=== PATIENT | male | born 1940 | race Caucasian/White ===

== ENCOUNTER 2022-04-24 04:43 | Inpatient (IN) | payer MEDICARE ==
[2022-04-24] MEDS ORDERED: methylPREDNISolone Sod Succ/PF 125 MG/2 ML VIAL ONE (05:00)
[2022-04-24 05:18] LABS: #Basophils 0.1 10x3/uL (0.0-0.2); #Eosinphils 0.1 10x3/uL (0.0-0.5); #Monocytes 1.3 10x3/uL (0.0-1.1); %Basophils 0.8 % (0.0-2.0); %Eosinophils 0.5 % (0.0-6.0); %Lymphocytes 6.6 % (18.0-47.0); %Monocytes 9.1 % (0.0-10.0); %Neutrophils 82.7 % (40.0-75.0); Hemoglobin 12.3 g/dL (13.5-17.5); Mean Corpuscular HGB CONC 32.9 g/dL (32.0-36.0); Mean Corpuscular Volume 94.2 fl (81.2-95.1); Mean Platelet Volume 10.5 fl (7.4-10.4); Platelet Count 309 10x3/uL (150-450); RBC Distribution Width 16.5 % (11.5-14.5); Red Blood Cell (RBC) Count 3.97 10x6/uL (4.32-5.72); White Blood Cell (WBC) Count 14.6 10x3/uL (3.5-10.5)
[2022-04-24 05:37] LABS: ALT (SGPT) 39 U/L (8-55); AST (SGOT) 56 U/L (5-34); Albumin 3.8 g/dL (3.4-4.8); Alkaline Phosphatase 94 U/L (40-110); Anion Gap 17 mmol/L (10-20); BUN (Urea Nitrogen) 13 mg/dL (8.4-25.7); Calc. Creatinine Clearance 0 mL/min (70-130); Carbon Dioxide 22 mmol/L (23-31); Chloride 102 mmol/L (98-107); Globulin 2.9 g/dL (2.4-3.5); Glucose 133 mg/dL (83-110); Potassium 4.5 mmol/L (3.5-5.1); Protein, Total 6.7 g/dL (5.8-8.1); Sodium 136 mmol/L (136-145)
[2022-04-24 06:00] LABS: CKMB 3.3 ng/mL (0-6.6)
[2022-04-24 06:01] LABS: SARS-CoV-2 NAA Rapid Test Not Detected (NotDetected)
[2022-04-24 06:28] LABS: Actual Bicarbonate (HCO3v) 22 mEq/L (22-28); Base Excess -0.6 mEq/L (-2.0 to +3.0); Calcium, Ionized (venous) 0.99 mmol/L (1.16-1.32); Chloride (VBG) 104 mmol/L (98-106); Potassium (VBG) 4.54 mmol/L (3.70-5.30); Puncture Site Other Site; Sodium 131.1 mmol/L (133-146); pH (venous) 7.48 (7.32-7.43)
[2022-04-24] MEDS ORDERED: Nitroglycerin 2% Ointment 1 INCH/1 GM Packet ONE (06:43)
[2022-04-24] MEDS ORDERED: Furosemide 40 MG/4 ML VIAL ONE (06:43)
[2022-04-24] MEDS ORDERED: cefTRIAXone\\ROCEPHIN 1 GM VIAL ONE (06:44)
[2022-04-24] MEDS ORDERED: Enalaprilat Dihydrate 1.25 MG/ML VIAL SLOW IVP SCH (07:00)
[2022-04-24] MEDS ORDERED: Albuterol Sulfate 2.5 mg/3 ml Neb NEB PRN (07:58)
[2022-04-24] MEDS ORDERED: Acetaminophen 325 MG TAB PO PRN (07:59)
[2022-04-24] MEDS ORDERED: Senokot S 8.6-50 MG TAB PO PRN (07:59)
[2022-04-24] MEDS ORDERED: Ondansetron ODT 4 MG TAB PO PRN (07:59)
[2022-04-24] MEDS ORDERED: Ondansetron PF 4 MG/2 ML Vial IVP PRN (07:59)
[2022-04-24 09:10] LABS: Troponin I 0.082 ng/mL (< 0.028)
[2022-04-24] MEDS: Enoxaparin Sodium 40 MG/0.4 ML SYRINGE SC SCH (10:02)
[2022-04-24] MEDS: Famotidine 20 MG TAB PO SCH ×2 (10:02→19:50)
[2022-04-24] MEDS ORDERED: Nicotine 14 MG PATCH TD PRN (10:05)
[2022-04-24] MEDS: Azithromycin 500 MG in Sodium Chloride 0.9% 250 ML 250 ML IVPB SCH (10:15)
[2022-04-24 11:42] LABS: Troponin I 0.074 ng/mL (< 0.028)
[2022-04-24 12:25] LABS: Bilirubin Neg (Negative); Blood, Urine Negative (Negative); Clarity Clear (Clear); Glucose, Urine (Dipstick) Normal (Negative); Ketone, Urine Negative (Negative); Leukocyte Negative (Negative); Nitrite Negative (Negative); Protein, Urine (Dipstick) Negative (Neg-Trace); Specific Gravity, Urine 1.005 (1.002-1.036); Urobilinogen Normal mg/dL (Less than 2); pH, Urine 6.5 (5.0-9.0)
[2022-04-24 12:35] LABS: Urine Culture Reflex No No
[2022-04-24 12:37] LABS: Bacteria/HPF None Seen HPF (None Seen); RBC/HPF None Seen HPF (0-3); Squamous Epithelial 0-3 HPF (0-3); WBC/HPF None Seen HPF (0-3)
[2022-04-24 12:39] LABS: Legionella Urinary Ag Negative (Negative); Strep pneumo Urine Ag NEGATIVE (NEGATIVE)
[2022-04-24] MEDS ORDERED: Furosemide 40 MG/4 ML VIAL SLOW IVP SCH (14:00)
[2022-04-24] MEDS: hydrALAZINE 25 MG TAB PO SCH (19:50)
[2022-04-24] MEDS: Calcium Carbonate 600 MG + Vit D TAB PO SCH (19:50)
[2022-04-24] MEDS: Multivit, Therapeutic 1 TAB PO SCH (19:51)
[2022-04-24] MEDS: Lorazepam 1 MG TAB PO SCH (19:51)
[2022-04-24] MEDS: Losartan Potassium 50 MG TAB PO SCH (19:51)
[2022-04-24] MEDS: Zolpidem Tartrate 5 MG TAB PO SCH (19:51)
[2022-04-25 05:22] LABS: Anion Gap 13 mmol/L (10-20); BUN (Urea Nitrogen) 16 mg/dL (8.4-25.7); Calc. Creatinine Clearance 48 mL/min (70-130); Calcium 8.4 mg/dL (7.8-10.44); Carbon Dioxide 27 mmol/L (23-31); Chloride 102 mmol/L (98-107); Glucose 108 mg/dL (83-110); Potassium 3.9 mmol/L (3.5-5.1); Sodium 138 mmol/L (136-145)
[2022-04-25 05:28] LABS: #Basophils 0.1 10x3/uL (0.0-0.2); #Monocytes 1.4 10x3/uL (0.0-1.1); #Neutrophils 11.7 10x3/uL (1.5-8.4); %Basophils 0.4 % (0.0-2.0); %Eosinophils 0.1 % (0.0-6.0); %Lymphocytes 6.8 % (18.0-47.0); %Monocytes 9.6 % (0.0-10.0); %Neutrophils 82.8 % (40.0-75.0); Hemoglobin 10.9 g/dL (13.5-17.5); Mean Corpuscular HGB CONC 33.5 g/dL (32.0-36.0); Mean Corpuscular Hemoglobin 30.9 pg (27.0-33.0); Mean Corpuscular Volume 92.1 fl (81.2-95.1); Mean Platelet Volume 10.6 fl (7.4-10.4); Platelet Count 259 10x3/uL (150-450); RBC Distribution Width 16.1 % (11.5-14.5); Red Blood Cell (RBC) Count 3.53 10x6/uL (4.32-5.72); White Blood Cell (WBC) Count 14.1 10x3/uL (3.5-10.5)
[2022-04-25] MEDS: cefTRIAXone\\ROCEPHIN 1 GM in Sodium Chloride 0.9% 100 ML IVPB SCH (06:05)
[2022-04-25] MEDS: Losartan Potassium 50 MG TAB PO SCH (08:13)
[2022-04-25] MEDS: Famotidine 20 MG TAB PO SCH (08:14)
[2022-04-25] MEDS: Enoxaparin Sodium 40 MG/0.4 ML SYRINGE SC SCH (08:14)
[2022-04-25] MEDS: Potassium Chloride 10 MEQ TAB PO SCH (08:14)
[2022-04-25] MEDS: Atorvastatin Calcium 10 MG TAB PO SCH (08:14)
[2022-04-25] MEDS: hydrALAZINE 25 MG TAB PO SCH (08:19)
[2022-04-25] MEDS: Azithromycin 500 MG in Sodium Chloride 0.9% 250 ML 250 ML IVPB SCH (10:07)
[2022-04-25] MEDS: Furosemide 40 MG/4 ML VIAL SLOW IVP SCH (14:43)
[2022-04-25] MEDS ORDERED: hydrALAZINE 20 MG/ML VIAL SLOW IVP PRN (17:30)
[2022-04-25] MEDS ORDERED: Carvedilol 12.5 MG TAB PO SCH (18:00)
[2022-04-25] MEDS ORDERED: Aspirin Chewable 81 MG TAB PO SCH (20:00)
[2022-04-25] MEDS: Calcium Carbonate 600 MG + Vit D TAB PO SCH (20:26)
[2022-04-25] MEDS: Multivit, Therapeutic 1 TAB PO SCH (20:26)
[2022-04-25] MEDS: Lorazepam 1 MG TAB PO SCH (20:27)
[2022-04-25] MEDS: Zolpidem Tartrate 5 MG TAB PO SCH (20:27)
[2022-04-25] MEDS ORDERED: Losartan Potassium 50 MG TAB PO SCH (21:00)
[2022-04-26 04:15] LABS: #Basophils 0.1 10x3/uL (0.0-0.2); #Eosinphils 0.1 10x3/uL (0.0-0.5); #Neutrophils 6.9 10x3/uL (1.5-8.4); %Basophils 0.9 % (0.0-2.0); %Eosinophils 1.3 % (0.0-6.0); %Lymphocytes 11.5 % (18.0-47.0); %Monocytes 10.5 % (0.0-10.0); %Neutrophils 75.5 % (40.0-75.0); Hemoglobin 11.4 g/dL (13.5-17.5); Mean Corpuscular HGB CONC 33.6 g/dL (32.0-36.0); Mean Corpuscular Hemoglobin 31.4 pg (27.0-33.0); Mean Corpuscular Volume 93.4 fl (81.2-95.1); Mean Platelet Volume 10.7 fl (7.4-10.4); Platelet Count 280 10x3/uL (150-450); RBC Distribution Width 16.4 % (11.5-14.5); Red Blood Cell (RBC) Count 3.63 10x6/uL (4.32-5.72); White Blood Cell (WBC) Count 9.1 10x3/uL (3.5-10.5)
[2022-04-26 04:30] LABS: Anion Gap 14 mmol/L (10-20); BUN (Urea Nitrogen) 13 mg/dL (8.4-25.7); Calc. Creatinine Clearance 53 mL/min (70-130); Calcium 8.6 mg/dL (7.8-10.44); Carbon Dioxide 28 mmol/L (23-31); Chloride 102 mmol/L (98-107); Glucose 98 mg/dL (83-110); Potassium 3.8 mmol/L (3.5-5.1); Sodium 140 mmol/L (136-145)
[2022-04-26] MEDS: Furosemide 40 MG/4 ML VIAL SLOW IVP SCH (06:31)
[2022-04-26 06:36] VITALS: BMI 21.9
[2022-04-26] MEDS ORDERED: Carvedilol 12.5 MG TAB PO SCH (08:00)
[2022-04-26] MEDS: Potassium Chloride 10 MEQ TAB PO SCH (08:01)
[2022-04-26] MEDS: cefTRIAXone\\ROCEPHIN 1 GM in Sodium Chloride 0.9% 100 ML IVPB SCH (08:01)
[2022-04-26] MEDS: Atorvastatin Calcium 10 MG TAB PO SCH (08:01)
[2022-04-26] MEDS: Enoxaparin Sodium 40 MG/0.4 ML SYRINGE SC SCH (08:02)
[2022-04-26 08:23] VITALS: BP 155/75; TEMP 97.5
[2022-04-26] MEDS ORDERED: Famotidine 20 MG TAB PO SCH ×2 (09:00→21:00)
[2022-04-26] MEDS ORDERED: Aspirin Chewable 81 MG TAB PO SCH (09:00)
[2022-04-26] MEDS ORDERED: Valsartan 80 MG TAB PO SCH (09:00)
== END 2022-04-26 10:35 | disposition home or self-care (01) | DRG 193 ==
LOC: SUATTDRO 04:43 → CSHERS 04:43 → CSHICU 09:56
PROVIDERS: ADMIT Internal Medicine; ATTEND Hospitalist
DX: J18.9 Pneumonia, unspecified organism (principal); J96.01 Acute respiratory failure with hypoxia; I21.A1 Myocardial infarction type 2; I50.43 Acute on chronic combined systolic (congestive) and diastolic (congestive) heart failure; Z20.822 Contact with and (suspected) exposure to COVID-19; I11.0 Hypertensive heart disease with heart failure; I73.9 Peripheral vascular disease, unspecified; I71.4 Abdominal aortic aneurysm, without rupture; C61 Malignant neoplasm of prostate; E78.5 Hyperlipidemia, unspecified; I16.0 Hypertensive urgency; I48.0 Paroxysmal atrial fibrillation; D64.9 Anemia, unspecified; F17.210 Nicotine dependence, cigarettes, uncomplicated; Z88.6 Allergy status to analgesic agent; Z79.899 Other long term (current) drug therapy; Z71.6 Tobacco abuse counseling
CPT/HCPCS: 36415; 71045; 80048; 80053; 81001; 82553; 82805; 83605; 83735; 83880; 84484; 85025; 87040; 87449; 87899; 93005; 93306; 94760; 96374; 96375; J0456; J0696; J1650; J1940; J2930; J3490; J7050; J7620

== ENCOUNTER 2022-05-04 10:23 | Inpatient (IN) | payer MEDICARE ==
[2022-05-04 11:03] LABS: #Basophils 0.1 10x3/uL (0.0-0.2); #Eosinphils 0.1 10x3/uL (0.0-0.5); #Monocytes 0.9 10x3/uL (0.0-1.1); #Neutrophils 8.9 10x3/uL (1.5-8.4); %Basophils 0.5 % (0.0-2.0); %Eosinophils 0.6 % (0.0-6.0); %Lymphocytes 6.8 % (18.0-47.0); %Monocytes 8.1 % (0.0-10.0); %Neutrophils 83.6 % (40.0-75.0); Hemoglobin 12.8 g/dL (13.5-17.5); Mean Corpuscular HGB CONC 34.8 g/dL (32.0-36.0); Mean Corpuscular Hemoglobin 30.9 pg (27.0-33.0); Mean Corpuscular Volume 88.9 fl (81.2-95.1); Mean Platelet Volume 9.3 fl (7.4-10.4); Platelet Count 329 10x3/uL (150-450); RBC Distribution Width 15.4 % (11.5-14.5); Red Blood Cell (RBC) Count 4.14 10x6/uL (4.32-5.72); White Blood Cell (WBC) Count 10.6 10x3/uL (3.5-10.5)
[2022-05-04 11:13] LABS: ALT (SGPT) 20 U/L (8-55); AST (SGOT) 23 U/L (5-34); Albumin 3.5 g/dL (3.4-4.8); Alkaline Phosphatase 74 U/L (40-110); Anion Gap 14 mmol/L (10-20); BUN (Urea Nitrogen) 15 mg/dL (8.4-25.7); Bilirubin, Total 0.3 mg/dL (0.2-1.2); Calc. Creatinine Clearance 0 mL/min (70-130); Carbon Dioxide 25 mmol/L (23-31); Chloride 92 mmol/L (98-107); Globulin 2.2 g/dL (2.4-3.5); Glucose 146 mg/dL (83-110); Protein, Total 5.7 g/dL (5.8-8.1); Sodium 127 mmol/L (136-145)
[2022-05-04 11:33] LABS: CKMB 3.6 ng/mL (0-6.6)
[2022-05-04] MEDS ORDERED: Acetaminophen 325 MG TAB PO PRN (14:04)
[2022-05-04] MEDS ORDERED: Ondansetron PF 4 MG/2 ML Vial IVP PRN (14:04)
[2022-05-04] MEDS ORDERED: Ondansetron ODT 4 MG TAB PO PRN (14:04)
[2022-05-04] MEDS ORDERED: HYDROcodone/Acetaminophen 5/325 mg Tablet PO PRN (14:04)
[2022-05-04 15:41] LABS: Magnesium 1.6 mg/dL (1.6-2.6)
[2022-05-04 17:27] LABS: Anion Gap 13 mmol/L (10-20); BUN (Urea Nitrogen) 14 mg/dL (8.4-25.7); Calc. Creatinine Clearance 0 mL/min (70-130); Calcium 8.2 mg/dL (7.8-10.44); Carbon Dioxide 23 mmol/L (23-31); Chloride 96 mmol/L (98-107); Glucose 192 mg/dL (83-110); Potassium 3.4 mmol/L (3.5-5.1); Sodium 129 mmol/L (136-145)
[2022-05-04] MEDS: Carvedilol 12.5 MG TAB PO SCH (17:30)
[2022-05-04 17:32] LABS: Troponin I 0.035 ng/mL (< 0.028)
[2022-05-04] MEDS ORDERED: Enoxaparin Sodium 60 MG/0.6 ML SYRINGE SC SCH (20:00)
[2022-05-04] MEDS ORDERED: Potassium Chloride 20 MEQ TAB PO SCH (20:00)
[2022-05-04] MEDS: hydrALAZINE 25 MG TAB PO SCH (20:49)
[2022-05-05 03:35] VITALS: BMI 23.4
[2022-05-05 04:12] LABS: #Basophils 0.1 10x3/uL (0.0-0.2); #Eosinphils 0.2 10x3/uL (0.0-0.5); #Neutrophils 6.4 10x3/uL (1.5-8.4); %Basophils 0.7 % (0.0-2.0); %Eosinophils 1.7 % (0.0-6.0); %Lymphocytes 14.1 % (18.0-47.0); %Monocytes 11.5 % (0.0-10.0); %Neutrophils 71.8 % (40.0-75.0); Mean Corpuscular HGB CONC 33.7 g/dL (32.0-36.0); Mean Corpuscular Hemoglobin 30.5 pg (27.0-33.0); Mean Corpuscular Volume 90.4 fl (81.2-95.1); Mean Platelet Volume 9.5 fl (7.4-10.4); Platelet Count 317 10x3/uL (150-450); RBC Distribution Width 15.3 % (11.5-14.5); Red Blood Cell (RBC) Count 3.94 10x6/uL (4.32-5.72); White Blood Cell (WBC) Count 8.9 10x3/uL (3.5-10.5)
[2022-05-05 04:24] LABS: ALT (SGPT) 13 U/L (8-55); AST (SGOT) 18 U/L (5-34); Albumin 2.8 g/dL (3.4-4.8); Alkaline Phosphatase 65 U/L (40-110); Anion Gap 14 mmol/L (10-20); BUN (Urea Nitrogen) 12 mg/dL (8.4-25.7); Bilirubin, Total 0.2 mg/dL (0.2-1.2); Calc. Creatinine Clearance 64 mL/min (70-130); Calcium 8.1 mg/dL (7.8-10.44); Carbon Dioxide 23 mmol/L (23-31); Chloride 97 mmol/L (98-107); Globulin 2.2 g/dL (2.4-3.5); Glucose 110 mg/dL (83-110); Magnesium 1.6 mg/dL (1.6-2.6); Potassium 3.7 mmol/L (3.5-5.1); Sodium 130 mmol/L (136-145)
[2022-05-05] MEDS ORDERED: Valsartan 80 MG TAB PO SCH ×2 (09:00→13:15)
[2022-05-05] MEDS ORDERED: Hydrochlorothiazide 25 MG TAB PO SCH (09:00)
[2022-05-05] MEDS ORDERED: Potassium Chloride 10 MEQ TAB PO SCH (09:00)
[2022-05-05] MEDS ORDERED: Enoxaparin Sodium 60 MG/0.6 ML SYRINGE SC SCH (09:00)
[2022-05-05] MEDS ORDERED: Enoxaparin Sodium 30 MG/0.3 ML SYRINGE SC SCH (09:00)
[2022-05-05] MEDS: Carvedilol 12.5 MG TAB PO SCH (09:12)
[2022-05-05] MEDS ORDERED: Enoxaparin Sodium 60 MG/0.6 ML SYRINGE ONE (09:12)
[2022-05-05] MEDS: hydrALAZINE 25 MG TAB PO SCH (09:12)
[2022-05-05 11:58] VITALS: TEMP 99.2
[2022-05-05 14:25] VITALS: BP 130/70
[2022-05-05] MEDS ORDERED: Dronedarone HCl 400 MG TAB PO SCH (17:00)
[2022-05-05] MEDS ORDERED: Apixaban 5 MG TAB PO SCH (21:00)
[2022-05-06] MEDS ORDERED: Furosemide 40 MG TAB PO SCH (07:30)
[2022-05-06] MEDS ORDERED: Potassium Chloride 10 MEQ TAB PO SCH (08:00)
[2022-05-06] MEDS ORDERED: Aspirin 81 mg Enteric Coated Tablet PO SCH (09:00)
[2022-05-06] MEDS ORDERED: Valsartan 80 MG TAB PO SCH (09:00)
[2022-05-06] MEDS ORDERED: Furosemide 20 MG TAB PO SCH (09:00)
== END 2022-05-05 17:05 | disposition home or self-care (01) | DRG 308 ==
LOC: CSHERS 10:23 → CSHTELE 13:50
PROVIDERS: ADMIT Family Medicine; ATTEND Family Medicine
DX: I48.0 Paroxysmal atrial fibrillation (principal); I50.43 Acute on chronic combined systolic (congestive) and diastolic (congestive) heart failure; E87.1 Hypo-osmolality and hyponatremia; I11.0 Hypertensive heart disease with heart failure; E78.5 Hyperlipidemia, unspecified; F10.10 Alcohol abuse, uncomplicated; I71.4 Abdominal aortic aneurysm, without rupture; I73.9 Peripheral vascular disease, unspecified; F17.210 Nicotine dependence, cigarettes, uncomplicated; D64.9 Anemia, unspecified; I95.9 Hypotension, unspecified; I25.10 Atherosclerotic heart disease of native coronary artery without angina pectoris; I49.5 Sick sinus syndrome; E87.8 Other disorders of electrolyte and fluid balance, not elsewhere classified; I42.9 Cardiomyopathy, unspecified; J44.9 Chronic obstructive pulmonary disease, unspecified; I34.0 Nonrheumatic mitral (valve) insufficiency; R26.9 Unspecified abnormalities of gait and mobility; E86.9 Volume depletion, unspecified; Z20.822 Contact with and (suspected) exposure to COVID-19; Z85.46 Personal history of malignant neoplasm of prostate; Z98.890 Other specified postprocedural states; Z79.01 Long term (current) use of anticoagulants; Z71.6 Tobacco abuse counseling; Z79.82 Long term (current) use of aspirin; Z79.899 Other long term (current) drug therapy; Z88.8 Allergy status to other drugs, medicaments and biological substances; Z92.3 Personal history of irradiation
CPT/HCPCS: 36415; 71045; 80053; 82553; 83735; 83880; 83935; 84300; 84443; 84484; 85025; 93005; 93010; 96360; J1650; U0003; U0005

== ENCOUNTER 2022-05-30 15:23 | Inpatient (IN) | payer MEDICARE ==
[2022-05-30 16:35] LABS: #Basophils 0.1 10x3/uL (0.0-0.2); #Eosinphils 0.1 10x3/uL (0.0-0.5); #Monocytes 0.8 10x3/uL (0.0-1.1); #Neutrophils 5.3 10x3/uL (1.5-8.4); %Basophils 0.8 % (0.0-2.0); %Eosinophils 1.5 % (0.0-6.0); %Monocytes 11.1 % (0.0-10.0); %Neutrophils 71.3 % (40.0-75.0); Hemoglobin 6.1 g/dL (13.5-17.5); Mean Corpuscular HGB CONC 31.9 g/dL (32.0-36.0); Mean Corpuscular Volume 94.1 fl (81.2-95.1); Platelet Count 355 10x3/uL (150-450); RBC Distribution Width 15.8 % (11.5-14.5); Red Blood Cell (RBC) Count 2.03 10x6/uL (4.32-5.72); White Blood Cell (WBC) Count 7.4 10x3/uL (3.5-10.5)
[2022-05-30 16:44] LABS: ALT (SGPT) 14 U/L (8-55); AST (SGOT) 18 U/L (5-34); Albumin 3.1 g/dL (3.4-4.8); Alkaline Phosphatase 68 U/L (40-110); Anion Gap 11 mmol/L (10-20); BUN (Urea Nitrogen) 14 mg/dL (8.4-25.7); Bilirubin, Total 0.3 mg/dL (0.2-1.2); Calc. Creatinine Clearance 0 mL/min (70-130); Calcium 8.6 mg/dL (7.8-10.44); Carbon Dioxide 26 mmol/L (23-31); Chloride 104 mmol/L (98-107); Estimated GFR 69; Globulin 2.1 g/dL (2.4-3.5); Glucose 154 mg/dL (83-110); Potassium 4.5 mmol/L (3.5-5.1); Protein, Total 5.2 g/dL (5.8-8.1); Sodium 136 mmol/L (136-145)
[2022-05-30] MEDS ORDERED: Pantoprazole 40 MG VIAL ONE (16:59)
[2022-05-30 17:34] LABS: INR-International Normal Ratio 1.1; PTT 29.6 sec (22.0-33.0); Prothrombin Time 12.1 sec (9.5-12.1)
[2022-05-30 17:35] LABS: Iron 14 ug/dL (65-175); Iron Binding Capacity, Total 291 mcg/dL (261-462)
[2022-05-30] MEDS ORDERED: diphenhydrAMINE 50 MG/ML VIAL ONE (19:42)
[2022-05-30] MEDS ORDERED: methylPREDNISolone Sod Succ/PF 125 MG/2 ML VIAL ONE (19:45)
[2022-05-30] MEDS ORDERED: Nitroglycerin 2% Ointment 1 INCH/1 GM Packet ONE (19:56)
[2022-05-30] MEDS ORDERED: Furosemide 40 MG/4 ML VIAL ONE (20:00)
[2022-05-30] MEDS ORDERED: Lorazepam 2 MG/ML VIAL ONE (20:00)
[2022-05-30 20:12] LABS: #Basophils 0.1 10x3/uL (0.0-0.2); #Eosinphils 0.2 10x3/uL (0.0-0.5); #Neutrophils 5.3 10x3/uL (1.5-8.4); %Basophils 1.1 % (0.0-2.0); %Eosinophils 1.9 % (0.0-6.0); %Lymphocytes 20.5 % (18.0-47.0); %Monocytes 11.7 % (0.0-10.0); %Neutrophils 64.6 % (40.0-75.0); Hemoglobin 7.5 g/dL (13.5-17.5); Mean Corpuscular HGB CONC 31.8 g/dL (32.0-36.0); Mean Corpuscular Hemoglobin 30.1 pg (27.0-33.0); Mean Corpuscular Volume 94.8 fl (81.2-95.1); Mean Platelet Volume 9.9 fl (7.4-10.4); Platelet Count 408 10x3/uL (150-450); RBC Distribution Width 15.8 % (11.5-14.5); Red Blood Cell (RBC) Count 2.49 10x6/uL (4.32-5.72); White Blood Cell (WBC) Count 8.3 10x3/uL (3.5-10.5)
[2022-05-30] MEDS ORDERED: Famotidine/PF 20 mg/2ml Vial ONE (20:13)
[2022-05-30 20:17] LABS: ALT (SGPT) 15 U/L (8-55); AST (SGOT) 18 U/L (5-34); Albumin 3.4 g/dL (3.4-4.8); Alkaline Phosphatase 78 U/L (40-110); Anion Gap 12 mmol/L (10-20); BUN (Urea Nitrogen) 14 mg/dL (8.4-25.7); Bilirubin, Total 0.3 mg/dL (0.2-1.2); Calc. Creatinine Clearance 0 mL/min (70-130); Calcium 8.7 mg/dL (7.8-10.44); Carbon Dioxide 24 mmol/L (23-31); Chloride 107 mmol/L (98-107); Estimated GFR 71; Globulin 2.2 g/dL (2.4-3.5); Glucose 116 mg/dL (83-110); Potassium 4.9 mmol/L (3.5-5.1); Protein, Total 5.6 g/dL (5.8-8.1); Sodium 138 mmol/L (136-145)
[2022-05-30 20:35] LABS: CKMB 2.4 ng/mL (0-6.6)
[2022-05-30] MEDS ORDERED: Lorazepam 1 MG TAB PO SCH (21:00)
[2022-05-30 22:53] LABS: Hemoglobin A1c 5.5 % (4.0-6.0)
[2022-05-30 23:23] LABS: SARS-CoV-2 NAA Rapid Test Not Detected (NotDetected)
[2022-05-30] MEDS ORDERED: Furosemide 40 MG/4 ML VIAL SLOW IVP SCH (23:30)
[2022-05-30] MEDS ORDERED: Lorazepam 2 MG/ML VIAL SLOW IVP SCH (23:30)
[2022-05-30] MEDS ORDERED: Nitroglycerin 2% Ointment 1 INCH/1 GM Packet TOP SCH (23:30)
[2022-05-30] MEDS ORDERED: Famotidine/PF 20 mg/2ml Vial SLOW IVP SCH (23:30)
[2022-05-31] LABS: CKMB 2.6 ng/mL (0-6.6)
[2022-05-31] MEDS: hydrALAZINE 20 MG/ML VIAL SLOW IVP PRN (00:24)
[2022-05-31] MEDS ORDERED: Furosemide 20 MG/2 ML VIAL SLOW IVP SCH (06:00)
[2022-05-31 06:48] LABS: Anion Gap 14 mmol/L (10-20); BUN (Urea Nitrogen) 15 mg/dL (8.4-25.7); Calc. Creatinine Clearance 51 mL/min (70-130); Calcium 8.7 mg/dL (7.8-10.44); Carbon Dioxide 24 mmol/L (23-31); Chloride 105 mmol/L (98-107); Estimated GFR 71; Glucose 156 mg/dL (83-110); Potassium 4.2 mmol/L (3.5-5.1); Sodium 139 mmol/L (136-145)
[2022-05-31 06:49] LABS: #Monocytes 0.1 10x3/uL (0.0-1.1); #Neutrophils 10.1 10x3/uL (1.5-8.4); %Basophils 0.2 % (0.0-2.0); %Lymphocytes 2.3 % (18.0-47.0); %Monocytes 0.7 % (0.0-10.0); %Neutrophils 96.6 % (40.0-75.0); Hemoglobin 7.3 g/dL (13.5-17.5); Mean Corpuscular HGB CONC 32.7 g/dL (32.0-36.0); Mean Corpuscular Hemoglobin 29.9 pg (27.0-33.0); Mean Corpuscular Volume 91.4 fl (81.2-95.1); Mean Platelet Volume 9.9 fl (7.4-10.4); Platelet Count 405 10x3/uL (150-450); RBC Distribution Width 15.7 % (11.5-14.5); Red Blood Cell (RBC) Count 2.44 10x6/uL (4.32-5.72); White Blood Cell (WBC) Count 10.4 10x3/uL (3.5-10.5)
[2022-05-31 08:01] LABS: CKMB 2.9 ng/mL (0-6.6)
[2022-05-31] MEDS: Carvedilol 12.5 MG TAB PO SCH ×2 (08:24→16:55)
[2022-05-31] MEDS ORDERED: Pantoprazole 40 MG VIAL IVP SCH (09:00)
[2022-05-31] MEDS: Valsartan 80 MG TAB PO SCH (09:32)
[2022-05-31] MEDS ORDERED: Furosemide 40 MG TAB PO SCH (14:00)
[2022-05-31] MEDS ORDERED: [UNRECOGNIZED DRUG - OTHER] IM SCH (16:00)
[2022-05-31] MEDS ORDERED: GoLYTELY 4,000 ml Bottle PO SCH (16:45)
[2022-05-31] MEDS: Dronedarone HCl 400 MG TAB PO SCH (17:41)
[2022-05-31] MEDS: Pantoprazole 40 MG VIAL IVP SCH (20:51)
[2022-05-31] MEDS: Multivit, Therapeutic 1 TAB PO SCH (20:51)
[2022-05-31] MEDS: Calcium Carbonate 600 MG + Vit D TAB PO SCH (20:51)
[2022-05-31] MEDS: hydrALAZINE 25 MG TAB PO SCH ×2 (20:51→21:30)
[2022-05-31] MEDS: Lorazepam 1 MG TAB PO SCH (20:51)
[2022-06-01 03:46] LABS: #Eosinphils 0.1 10x3/uL (0.0-0.5); #Monocytes 1.2 10x3/uL (0.0-1.1); #Neutrophils 7.7 10x3/uL (1.5-8.4); %Basophils 0.3 % (0.0-2.0); %Eosinophils 0.5 % (0.0-6.0); %Monocytes 11.6 % (0.0-10.0); %Neutrophils 75.3 % (40.0-75.0); Hemoglobin 6.7 g/dL (13.5-17.5); Mean Corpuscular Hemoglobin 29.6 pg (27.0-33.0); Mean Corpuscular Volume 89.8 fl (81.2-95.1); Mean Platelet Volume 10.1 fl (7.4-10.4); Platelet Count 360 10x3/uL (150-450); RBC Distribution Width 15.7 % (11.5-14.5); Red Blood Cell (RBC) Count 2.26 10x6/uL (4.32-5.72); White Blood Cell (WBC) Count 10.3 10x3/uL (3.5-10.5)
[2022-06-01 05:23] LABS: Anion Gap 12 mmol/L (10-20); BUN (Urea Nitrogen) 17 mg/dL (8.4-25.7); Calc. Creatinine Clearance 56 mL/min (70-130); Calcium 8.2 mg/dL (7.8-10.44); Carbon Dioxide 28 mmol/L (23-31); Chloride 102 mmol/L (98-107); Estimated GFR 78; Glucose 93 mg/dL (83-110); Potassium 3.3 mmol/L (3.5-5.1); Sodium 139 mmol/L (136-145)
[2022-06-01] MEDS ORDERED: Potassium Chloride 20 MEQ in Premix Bag 1 BAG IVPB SCH (06:00)
[2022-06-01] MEDS: Carvedilol 12.5 MG TAB PO SCH ×2 (08:14→17:08)
[2022-06-01] MEDS: Furosemide 40 MG/4 ML VIAL SLOW IVP SCH (08:14)
[2022-06-01] MEDS: Pantoprazole 40 MG VIAL IVP SCH ×2 (08:14→21:45)
[2022-06-01] MEDS: Atorvastatin Calcium 10 MG TAB PO SCH (08:14)
[2022-06-01] MEDS: Dronedarone HCl 400 MG TAB PO SCH ×2 (08:14→17:08)
[2022-06-01] MEDS: Potassium Chloride 10 MEQ TAB PO SCH (08:14)
[2022-06-01] MEDS: Valsartan 80 MG TAB PO SCH (08:16)
[2022-06-01] MEDS: hydrALAZINE 25 MG TAB PO SCH ×2 (08:16→21:45)
[2022-06-01 10:20] LABS: Hemoglobin 7.7 g/dL (13.5-17.5); Mean Corpuscular HGB CONC 33.5 g/dL (32.0-36.0); Mean Corpuscular Hemoglobin 29.6 pg (27.0-33.0); Mean Corpuscular Volume 88.5 fl (81.2-95.1); Mean Platelet Volume 9.6 fl (7.4-10.4); Platelet Count 352 10x3/uL (150-450); RBC Distribution Width 16.9 % (11.5-14.5); White Blood Cell (WBC) Count 8.4 10x3/uL (3.5-10.5)
[2022-06-01] MEDS ORDERED: Lidocaine 2% MPF 10 ML AMP (For Epidural Use) ONE (13:06)
[2022-06-01] MEDS ORDERED: PROPOFOL 40 ML ONE (13:06)
[2022-06-01] MEDS ORDERED: Fentanyl 100 MCG/2 ML VIAL ONE (14:00)
[2022-06-01] MEDS ORDERED: PROPOFOL 20 ML ONE (15:21)
[2022-06-01] MEDS ORDERED: ePHEDrine Sulfate 50 MG/10 ML VIAL ONE (16:04)
[2022-06-01] MEDS: Lorazepam 1 MG TAB PO SCH (21:45)
[2022-06-01] MEDS: Multivit, Therapeutic 1 TAB PO SCH (21:45)
[2022-06-01] MEDS: Calcium Carbonate 600 MG + Vit D TAB PO SCH (21:45)
[2022-06-02 02:26] VITALS: TEMP 97.3
[2022-06-02 04:35] LABS: Hemoglobin 7.6 g/dL (13.5-17.5); Mean Corpuscular HGB CONC 33.3 g/dL (32.0-36.0); Mean Corpuscular Hemoglobin 29.3 pg (27.0-33.0); Mean Platelet Volume 9.8 fl (7.4-10.4); Platelet Count 357 10x3/uL (150-450); RBC Distribution Width 17.3 % (11.5-14.5); Red Blood Cell (RBC) Count 2.59 10x6/uL (4.32-5.72); White Blood Cell (WBC) Count 7.7 10x3/uL (3.5-10.5)
[2022-06-02 04:40] LABS: Anion Gap 10 mmol/L (10-20); BUN (Urea Nitrogen) 15 mg/dL (8.4-25.7); Calc. Creatinine Clearance 44 mL/min (70-130); Calcium 8.5 mg/dL (7.8-10.44); Carbon Dioxide 30 mmol/L (23-31); Chloride 102 mmol/L (98-107); Estimated GFR 62; Glucose 95 mg/dL (83-110); Potassium 3.2 mmol/L (3.5-5.1); Sodium 139 mmol/L (136-145)
[2022-06-02] MEDS: hydrALAZINE 20 MG/ML VIAL SLOW IVP PRN (04:41)
[2022-06-02 05:16] LABS: MDiff Complete? YES
[2022-06-02 05:22] LABS: Lymphocytes 20 % (21-51); Monocytes 12 % (0-10); Neutrophil 67 % (42-75); Reactive Lymphocytes 1 % (0-10)
[2022-06-02 05:24] LABS: Hypochromia MODERATE=16-30 cells (100X) (0-5/hpf)
[2022-06-02 05:25] LABS: Anisocytosis SLIGHT = 6-15 cells (100X) (0-5/hpf); Microcytosis SLIGHT = 6-15 cells (100X) (0-5/hpf); Platelet Morphology Comment Appears Adequate
[2022-06-02] MEDS ORDERED: Potassium Chloride 20 MEQ TAB PO SCH (05:30)
[2022-06-02] MEDS: Dronedarone HCl 400 MG TAB PO SCH (08:40)
[2022-06-02] MEDS: hydrALAZINE 25 MG TAB PO SCH (08:40)
[2022-06-02] MEDS: Furosemide 40 MG/4 ML VIAL SLOW IVP SCH (08:40)
[2022-06-02] MEDS: Atorvastatin Calcium 10 MG TAB PO SCH (08:40)
[2022-06-02] MEDS: Potassium Chloride 10 MEQ TAB PO SCH (08:40)
[2022-06-02] MEDS: Carvedilol 12.5 MG TAB PO SCH (08:40)
[2022-06-02] MEDS: Valsartan 80 MG TAB PO SCH (08:41)
[2022-06-02 08:42] VITALS: BP 158/81
[2022-06-02] MEDS: Pantoprazole 40 MG VIAL IVP SCH (08:42)
[2022-06-02 12:17] VITALS: BMI 21.4
== END 2022-06-02 14:03 | disposition home or self-care (01) | DRG 811 ==
LOC: CSHERS 15:23 → CSHICU 23:10
PROVIDERS: ADMIT Student in an Organized Health Care Education/Training Program; ATTEND Family Medicine
PROC: 30233N1 Transfusion of Nonautologous Red Blood Cells into Peripheral Vein, Percutaneous Approach (ICD-10-PCS; principal; 2022-05-30)
PROC: 0DJ08ZZ Inspection of Upper Intestinal Tract, Via Natural or Artificial Opening Endoscopic (ICD-10-PCS; 2022-06-01)
PROC: 0DBL8ZZ Excision of Transverse Colon, Via Natural or Artificial Opening Endoscopic (ICD-10-PCS; 2022-06-01)
DX: D64.9 Anemia, unspecified (principal); I50.43 Acute on chronic combined systolic (congestive) and diastolic (congestive) heart failure; I48.0 Paroxysmal atrial fibrillation; Z20.822 Contact with and (suspected) exposure to COVID-19; I73.9 Peripheral vascular disease, unspecified; I71.4 Abdominal aortic aneurysm, without rupture; I11.0 Hypertensive heart disease with heart failure; K57.30 Diverticulosis of large intestine without perforation or abscess without bleeding; K64.8 Other hemorrhoids; F17.210 Nicotine dependence, cigarettes, uncomplicated; C61 Malignant neoplasm of prostate; K63.5 Polyp of colon; E78.5 Hyperlipidemia, unspecified; Z79.899 Other long term (current) drug therapy; Z79.82 Long term (current) use of aspirin; Z88.6 Allergy status to analgesic agent; Z79.01 Long term (current) use of anticoagulants; Z71.6 Tobacco abuse counseling
CPT/HCPCS: 36415; 36416; 36430; 71045; 80048; 80053; 82274; 82553; 82607; 82728; 82746; 83010; 83036; 83540; 83550; 83735; 83880; 84484; 85025; 85046; 85610; 85730; 86850; 86900; 86901; 88305; 93005; 93010; 93306; 94660; 94760; 96374; 96375; C9113; J0360; J1200; J1940; J2060; J2704; J2930; J3010; J3480; J7620; P9016; S0028; U0002

== ENCOUNTER 2022-06-20 06:48 | Inpatient (IN) | payer MEDICARE ==
[2022-06-20] MEDS ORDERED: Furosemide 40 MG/4 ML VIAL ONE (07:23)
[2022-06-20] MEDS ORDERED: predniSONE 20 MG TAB ONE (07:23)
[2022-06-20 07:24] LABS: #Basophils 0.1 10x3/uL (0.0-0.2); #Eosinphils 0.1 10x3/uL (0.0-0.5); #Monocytes 1.2 10x3/uL (0.0-1.1); #Neutrophils 7.6 10x3/uL (1.5-8.4); %Basophils 0.6 % (0.0-2.0); %Eosinophils 1.3 % (0.0-6.0); %Lymphocytes 7.3 % (18.0-47.0); %Monocytes 12.1 % (0.0-10.0); %Neutrophils 78.3 % (40.0-75.0); Hemoglobin 7.6 g/dL (13.5-17.5); Mean Corpuscular HGB CONC 31.3 g/dL (32.0-36.0); Mean Corpuscular Hemoglobin 29.2 pg (27.0-33.0); Mean Corpuscular Volume 93.5 fl (81.2-95.1); Mean Platelet Volume 9.8 fl (7.4-10.4); Platelet Count 398 10x3/uL (150-450); White Blood Cell (WBC) Count 9.7 10x3/uL (3.5-10.5)
[2022-06-20] MEDS ORDERED: Nitroglycerin 2% Ointment 1 INCH/1 GM Packet ONE (07:24)
[2022-06-20] MEDS ORDERED: Magnesium 2 GM/50 ML BAG (IN WATER) ONE (07:24)
[2022-06-20 07:46] LABS: ALT (SGPT) 11 U/L (8-55); AST (SGOT) 14 U/L (5-34); Albumin 3.5 g/dL (3.4-4.8); Alkaline Phosphatase 75 U/L (40-110); Anion Gap 12 mmol/L (10-20); BUN (Urea Nitrogen) 11 mg/dL (8.4-25.7); Bilirubin, Total 0.6 mg/dL (0.2-1.2); Calc. Creatinine Clearance 0 mL/min (70-130); Calcium 8.8 mg/dL (7.8-10.44); Carbon Dioxide 25 mmol/L (23-31); Chloride 105 mmol/L (98-107); Estimated GFR 77; Globulin 2.2 g/dL (2.4-3.5); Glucose 138 mg/dL (83-110); Potassium 4.1 mmol/L (3.5-5.1); Protein, Total 5.7 g/dL (5.8-8.1); Sodium 138 mmol/L (136-145)
[2022-06-20] MEDS ORDERED: Ventolin HFA Inhaler 60 PUFF INHALER ONE (07:50)
[2022-06-20 08:03] LABS: CKMB 2.2 ng/mL (0-6.6)
[2022-06-20 08:26] LABS: SARS-CoV-2 NAA Rapid Test Not Detected (NotDetected)
[2022-06-20] MEDS ORDERED: Acetaminophen 325 MG TAB PO PRN (10:30)
[2022-06-20 10:48] LABS: Troponin I 0.036 ng/mL (< 0.028)
[2022-06-20] MEDS ORDERED: Diltiazem 125 MG in Sodium Chloride 0.9% 100 ML IVPB SCH (11:15)
[2022-06-20 11:47] VITALS: BMI 21.7
[2022-06-20] MEDS: Furosemide 40 MG/4 ML VIAL SLOW IVP SCH (14:08)
[2022-06-20] MEDS: Carvedilol 12.5 MG TAB PO SCH (17:03)
[2022-06-20] MEDS ORDERED: Lorazepam 1 MG TAB PO SCH (21:00)
[2022-06-20] MEDS ORDERED: Non-Formulary Medication 1 EACH (Hydralazine Hcl [Hydralazine Hcl] 50 MG Tablet) PO SCH (21:00)
[2022-06-21] MEDS ORDERED: Metoprolol Tartrate 5 MG/5 ML VIAL IVP SCH ×2 (01:45→05:30)
[2022-06-21 05:25] LABS: Anion Gap 11 mmol/L (10-20); BUN (Urea Nitrogen) 17 mg/dL (8.4-25.7); Calc. Creatinine Clearance 49 mL/min (70-130); Calcium 8.8 mg/dL (7.8-10.44); Carbon Dioxide 29 mmol/L (23-31); Chloride 99 mmol/L (98-107); Estimated GFR 69; Glucose 118 mg/dL (83-110); Potassium 3.3 mmol/L (3.5-5.1); Sodium 136 mmol/L (136-145)
[2022-06-21 05:56] LABS: #Monocytes 1.1 10x3/uL (0.0-1.1); #Neutrophils 6.2 10x3/uL (1.5-8.4); %Basophils 0.4 % (0.0-2.0); %Eosinophils 0.5 % (0.0-6.0); %Monocytes 12.4 % (0.0-10.0); %Neutrophils 73.5 % (40.0-75.0); Hemoglobin 7.7 g/dL (13.5-17.5); Mean Corpuscular HGB CONC 32.6 g/dL (32.0-36.0); Mean Corpuscular Hemoglobin 29.1 pg (27.0-33.0); Mean Corpuscular Volume 89.1 fl (81.2-95.1); Mean Platelet Volume 9.9 fl (7.4-10.4); RBC Distribution Width 18.5 % (11.5-14.5); Red Blood Cell (RBC) Count 2.65 10x6/uL (4.32-5.72); White Blood Cell (WBC) Count 8.5 10x3/uL (3.5-10.5)
[2022-06-21 06:27] LABS: Platelet Count 447 10x3/uL (150-450)
[2022-06-21] MEDS: Furosemide 40 MG/4 ML VIAL SLOW IVP SCH ×2 (06:27→14:45)
[2022-06-21] MEDS ORDERED: Potassium Chloride 10 MEQ TAB PO SCH (08:00)
[2022-06-21] MEDS ORDERED: Metoprolol Tartrate 25 MG TAB PO SCH (09:00)
[2022-06-21] MEDS ORDERED: Valsartan 80 MG TAB PO SCH (09:00)
[2022-06-21] MEDS ORDERED: Atorvastatin Calcium 10 MG TAB PO SCH (09:00)
[2022-06-21] MEDS ORDERED: Rivaroxaban 10 MG TAB PO SCH (09:00)
[2022-06-21] MEDS ORDERED: Docusate 100 MG CAP PO SCH (09:00)
[2022-06-21] MEDS ORDERED: Aspirin 81 mg Enteric Coated Tablet PO SCH (09:00)
[2022-06-21] MEDS ORDERED: Ferrous Sulfate 325 MG TAB PO SCH (09:00)
[2022-06-21] MEDS: Carvedilol 12.5 MG TAB PO SCH ×2 (10:01→17:42)
[2022-06-21 16:45] VITALS: BP 133/63; TEMP 97.8
== END 2022-06-21 18:56 | disposition home or self-care (01) | DRG 291 ==
LOC: CSHERS 06:48 → CSHTELE 10:20
PROVIDERS: ADMIT Internal Medicine; ATTEND Family Medicine
DX: I11.0 Hypertensive heart disease with heart failure (principal); I50.43 Acute on chronic combined systolic (congestive) and diastolic (congestive) heart failure; E78.5 Hyperlipidemia, unspecified; I48.91 Unspecified atrial fibrillation; I73.9 Peripheral vascular disease, unspecified; I71.4 Abdominal aortic aneurysm, without rupture; F17.210 Nicotine dependence, cigarettes, uncomplicated; D64.9 Anemia, unspecified; C61 Malignant neoplasm of prostate; I25.10 Atherosclerotic heart disease of native coronary artery without angina pectoris; Z20.822 Contact with and (suspected) exposure to COVID-19; Z88.8 Allergy status to other drugs, medicaments and biological substances; Z79.899 Other long term (current) drug therapy; Z79.82 Long term (current) use of aspirin; Z98.890 Other specified postprocedural states; Z71.6 Tobacco abuse counseling; Z79.01 Long term (current) use of anticoagulants
CPT/HCPCS: 36415; 71045; 80048; 80053; 82553; 83880; 84484; 85025; 86850; 86900; 86901; 93005; 94760; J1940; J3475; J7512; U0002

== ENCOUNTER 2024-09-16 13:15 | Outpatient (CLI) | payer MEDICARE | END 2024-09-16 13:16 | disposition home or self-care (01) | LOC: CSHWCC 13:15 | PROVIDERS: ATTEND Nurse Practitioner Family | DX: S31.501D Unspecified open wound of unspecified external genital organs, male, subsequent encounter (principal); I50.22 Chronic systolic (congestive) heart failure; T81.31XD Disruption of external operation (surgical) wound, not elsewhere classified, subsequent encounter; T81.329D Deep disruption or dehiscence of operation wound, unspecified, subsequent encounter | CPT/HCPCS: 11042; G0463; 99213 ==

== ENCOUNTER 2024-09-22 15:12 | Outpatient (CLI) | payer MEDICARE | END 2024-09-22 15:13 | disposition home or self-care (01) | LOC: CSHWCC 15:12 | PROVIDERS: ATTEND Nurse Practitioner Family | DX: T81.329D Deep disruption or dehiscence of operation wound, unspecified, subsequent encounter (principal); T81.31XD Disruption of external operation (surgical) wound, not elsewhere classified, subsequent encounter; S31.501D Unspecified open wound of unspecified external genital organs, male, subsequent encounter; I50.22 Chronic systolic (congestive) heart failure | CPT/HCPCS: 11042; 97605 ==

== ENCOUNTER 2024-09-29 14:01 | Outpatient (CLI) | payer MEDICARE | END 2024-09-29 14:02 | disposition home or self-care (01) | LOC: CSHWCC 14:01 | PROVIDERS: ATTEND Nurse Practitioner Family | DX: T81.329D Deep disruption or dehiscence of operation wound, unspecified, subsequent encounter (principal); T81.31XD Disruption of external operation (surgical) wound, not elsewhere classified, subsequent encounter; S31.501D Unspecified open wound of unspecified external genital organs, male, subsequent encounter; I50.22 Chronic systolic (congestive) heart failure | CPT/HCPCS: 11042; 97605 ==

== ENCOUNTER 2024-10-06 14:03 | Outpatient (CLI) | payer MEDICARE | END 2024-10-06 14:04 | disposition home or self-care (01) | LOC: CSHWCC 14:03 | PROVIDERS: ATTEND Nurse Practitioner Family | DX: T81.329D Deep disruption or dehiscence of operation wound, unspecified, subsequent encounter (principal); T81.31XD Disruption of external operation (surgical) wound, not elsewhere classified, subsequent encounter; S31.501D Unspecified open wound of unspecified external genital organs, male, subsequent encounter; I50.22 Chronic systolic (congestive) heart failure | CPT/HCPCS: 11042; G0463; 99212 ==

== ENCOUNTER 2024-10-13 12:29 | Outpatient (CLI) | payer MEDICARE | END 2024-10-13 12:30 | disposition home or self-care (01) | LOC: CSHWCC 12:29 | PROVIDERS: ATTEND Nurse Practitioner Family | DX: S31.501D Unspecified open wound of unspecified external genital organs, male, subsequent encounter (principal); T81.31XD Disruption of external operation (surgical) wound, not elsewhere classified, subsequent encounter; T81.329D Deep disruption or dehiscence of operation wound, unspecified, subsequent encounter; I50.22 Chronic systolic (congestive) heart failure | CPT/HCPCS: 11042; G0463; 99212 ==

== ENCOUNTER 2024-10-20 09:03 | Outpatient (CLI) | payer MEDICARE | END 2024-10-20 09:04 | disposition home or self-care (01) | LOC: CSHWCC 09:03 | PROVIDERS: ATTEND Family Medicine | DX: S31.501D Unspecified open wound of unspecified external genital organs, male, subsequent encounter (principal); T81.31XD Disruption of external operation (surgical) wound, not elsewhere classified, subsequent encounter; T81.329D Deep disruption or dehiscence of operation wound, unspecified, subsequent encounter; I50.22 Chronic systolic (congestive) heart failure | CPT/HCPCS: 11042 ==

== ENCOUNTER 2024-10-27 13:18 | Outpatient (CLI) | payer MEDICARE | END 2024-10-27 13:19 | disposition home or self-care (01) | LOC: CSHWCC 13:18 | PROVIDERS: ATTEND Nurse Practitioner Family | DX: T81.31XD Disruption of external operation (surgical) wound, not elsewhere classified, subsequent encounter (principal); T81.329D Deep disruption or dehiscence of operation wound, unspecified, subsequent encounter; S31.501D Unspecified open wound of unspecified external genital organs, male, subsequent encounter; I50.22 Chronic systolic (congestive) heart failure | CPT/HCPCS: 11042 ==

== ENCOUNTER 2024-11-10 14:23 | Outpatient (CLI) | payer MEDICARE | END 2024-11-10 14:24 | disposition home or self-care (01) | LOC: CSHWCC 14:23 | PROVIDERS: ATTEND Nurse Practitioner Family | DX: S31.501D Unspecified open wound of unspecified external genital organs, male, subsequent encounter (principal); T81.31XD Disruption of external operation (surgical) wound, not elsewhere classified, subsequent encounter; T81.329D Deep disruption or dehiscence of operation wound, unspecified, subsequent encounter; I50.22 Chronic systolic (congestive) heart failure | CPT/HCPCS: 11042 ==

== ENCOUNTER 2024-11-24 10:52 | Outpatient (CLI) | payer MEDICARE | END 2024-11-24 10:53 | disposition home or self-care (01) | LOC: CSHWCC 10:52 | PROVIDERS: ATTEND Nurse Practitioner Family | DX: S31.501D Unspecified open wound of unspecified external genital organs, male, subsequent encounter (principal); T81.31XD Disruption of external operation (surgical) wound, not elsewhere classified, subsequent encounter; T81.329D Deep disruption or dehiscence of operation wound, unspecified, subsequent encounter; I50.22 Chronic systolic (congestive) heart failure | CPT/HCPCS: 99212; G0463 ==

== ENCOUNTER 2024-12-08 10:42 | Outpatient (CLI) | payer MEDICARE | END 2024-12-08 10:43 | disposition home or self-care (01) | LOC: CSHWCC 10:42 | PROVIDERS: ATTEND Nurse Practitioner Family | DX: Z87.2 Personal history of diseases of the skin and subcutaneous tissue (principal) | CPT/HCPCS: 99212; G0463 ==